=== PATIENT | male | born 1975 | race Caucasian/White ===

== ENCOUNTER 2021-10-22 22:05 | Emergency (ER) | payer OTHER, SELFPAY ==
[2021-10-22 22:21] VITALS: BP 138/89; PULSE 67; RESP 18; TEMP 36.7; O2SAT 98; BMI 37.5
--- NOTE | 2021-10-22 22:27 | DI.RAD.S_ITS ---
PROCEDURE: XR CHEST 1V INDICATIONS: chest pain TECHNIQUE: One view of the chest was acquired. COMPARISON: None. FINDINGS: Surgical changes and devices: None. Lungs and pleura: Lungs are clear. No pleural effusions or pneumothorax. Mediastinum: Mediastinal contours appear normal. Heart size is normal. Bones and chest wall: No suspicious bony lesions. Overlying soft tissues appear unremarkable. IMPRESSION: Reduced inspiratory volume, no definite source of chest pain is found. Dictated by: Jacob Bar M.D. on 10/22/2021 at 22:59 Approved by: Jacob Bar M.D. on 10/22/2021 at 22:59
[2021-10-22 22:52] LABS: Add Manual Diff / Slide Review NO; Basophils Absolute Auto 100 /uL (0-100); Basophils Percent Auto 1.1 % (0-2); Eosinophils Absolute Auto 400 /uL (0-450); Eosinophils Percent Auto 5.9 % (2-4); Hematocrit 41.2 % (41-53); Hemoglobin 14.7 g/dL (13.5-17.5); Lymphocytes Absolute Auto 2900 /uL (1100-4500); Lymphocytes Percent Auto 45.3 % (25-40); Mean Corpuscular HGB Conc 35.6 % (30-36); Mean Corpuscular Hemoglobin 30.6 PG (26-34); Mean Corpuscular Volume 85.8 fL (80-100); Monocytes Absolute Auto 400 /uL (0-900); Monocytes Percent Auto 6.6 % (3-14); Neutrophils Absolute Auto 2600 /uL (1500-7000); Neutrophils Percent Auto 41.1 % (50-75); Platelet Count 282 X10^3/uL (150-400); Red Cell Distribution Width 13.3 % (11.6-14.8); White Blood Cell Count 6.3 X10^3/uL (4.5-11.0)
[2021-10-22 23:01] LABS: Alanine Aminotransferase 38 IU/L (<50); Albumin 4.4 g/dL (3.5-5.0); Albumin Globulin Ratio 1.3 (1.0-2.8); Alkaline Phosphatase 47 U/L (38-126); Aspartate Aminotransferase 34 IU/L (17-59); BUN Creatinine Ratio 18.6 (6-22); Bilirubin Total 0.8 mg/dL (0.2-1.3); Blood Urea Nitrogen 13 mg/dL (9-20); Calcium 8.7 mg/dL (8.4-10.2); Carbon Dioxide 23 mmol/L (22-32); Chloride 105 mmol/L (98-107); Creatine Kinase 298 U/L (55-170); Estimated Glomerular Filt Rate > 60 mL/min (>60); Globulin 3.4 g/dL (1.7-4.1); Glucose 99 mg/dL (70-100); Lipase 141 U/L (23-300); Magnesium 2.1 mg/dL (1.6-2.3); Potassium 4.1 mmol/L (3.4-5.1); Sodium 137 mmol/L (137-145); Total Protein 7.8 g/dL (6.3-8.2)
[2021-10-22 23:12] LABS: Troponin I < 0.012 ng/mL (0.01-0.034)
[2021-10-22 23:16] LABS: CKMB % Relative Index 0.5 % (1.5-5.0); Creatine Kinase MB 1.35 ng/mL (<2.37); HEMOLYSIS 16 (0-50)
[2021-10-22 23:17] LABS: D Dimer < 215 ng/ml (<500)
[2021-10-22] MEDS: MAG HYDROX/ALUMINUM/SIMETH SUS 20 ML, LIDOCAINE VISCOUS 2% 15 ML PO (23:17)
[2021-10-22 23:20] LABS: C-Reactive Protein Quant < 0.5 mg/dL (<1.0)
[2021-10-22 23:22] LABS: Erythrocyte Sedimentation Rate 41 MM/HR (0-15)
--- NOTE | 2021-10-22 23:48 | ED_ITS ---
HPI - Chest Pain General Chief Complaint: Chest Pain Stated Complaint: Chest Pain, Nausea Time Seen by Provider: 10/22/21 22:22 Source: patient Mode of arrival: Ambulatory Limitations: no limitations History of Present Illness HPI narrative: 46-year-old male nonsmoker with extensive history of GI complaints that are likely related to reflux presents with his family in the chief complaint of epigastric discomfort that has been worsening over the past few days and became significantly worse this afternoon. He denies any radiation of the pain nor any associated symptoms such as dizziness, weakness or lightheadedness. He denies nausea, vomiting or diarrhea. He is had no unexplained diaphoresis. He denies any exertional symptoms and states in fact he has been hiking recently and denies any symptoms associated with this. He is had no fever or chills nor any change in diet or bowel habits. He had been taking 40 mg daily of a PPI until recently when his doctor asked him to cut back. He states that he started having increasing frequency and severity of his epigastric pain in the aftermath and states that it wrapped up significantly today, he admittedly had been eating prior to watching a football game but states he did not eat any foods that are typical triggers. He denies any worsening with deep breath. He denies recent travel or history of cancer. He does have a remote history of a DVT that was associated with an orthopedic surgery, he had been on anticoagulants for 6 months but stopped afterwards. Related Data Previous Rx's Medication Instructions Recorded ketorolac 10 mg tablet 10 mg PO Q6H PRN pain #20 tabs 10/23/21 Review of Systems Review of Systems Narrative: GENERAL: Denies chills, fatigue, malaise, fever, sweats. HEENT: Denies sinus pain, ear pain, sore throat, difficulty swallowing, dizziness. RESPIRATORY: Denies dyspnea, cough, wheezing, hemoptysis, sputum. CARDIOVASCULAR: Denies chest pain, palpitations, orthopnea, edema, GASTROINTESTINAL: See HPI : Denies dysuria, frequency, incontinence, hematuria, urinary retention. MUSCULOSKELETAL: denies weakness, joint pain, or bony pain SKIN: Denies rash, skin lesions, or other NEUROLOGIC: Denies weakness, headache, numbness, change in speech, confusion, seizures, incoordination. PSYCHIATRIC: No concerning psychosocial issues. 12 point review of systems is negative except for those stated above Patient History Social History Smoking Status: Never smoker Smoking Status: Never smoker alcohol intake frequency: 0-2 drinks per day Substance Use Type: does not use Exam Narrative Exam Narrative: GENERAL: [46] year old patient appears stated age. Well-developed patient, in mild distress. HEAD: Atraumatic. Normocephalic. EYES: Pupils equal round and reactive. Extraocular motions intact. No scleral icterus. No injection or drainage. ENT: Nose without bleeding, purulent drainage. Throat without erythema, tonsillar hypertrophy or exudate. Airway patent. NECK: Trachea midline. Non tender CARDIOVASCULAR: Regular rate and rhythm without murmurs, gallops, or rubs. RESPIRATORY: Clear to auscultation. Breath sounds equal bilaterally. No wheezes, rales, or rhonchi. GASTROINTESTINAL: Abdomen soft, moderate epigastric pain on palpation nondistended. EXTREMITIES: No edema or joint tenderness. BACK: Nontender without deformity or crepitance. No flank tenderness. NEURO: AOx3. SKIN: No rash or erythema of visible areas Initial Vital Signs Initial Vital Signs: Vital Signs Temperature 98.1 F 10/22/21 22:21 Pulse Rate 67 10/22/21 22:21 Respiratory Rate 18 10/22/21 22:21 Blood Pressure 138/89 10/22/21 22:21 Pulse Oximetry 98 10/22/21 22:21 Oxygen Delivery Method 10/22/21 22:21 Scores HEART Score Heart Score history: Slightly Suspicious Heart Score EKG: Normal Heart Score Age: < 45 years old Heart Score risk factors: No known risk factors Heart Score troponin: < or = to normal limit Heart Score Total: 0 Course Orders Ordered: ED Orders 10/22/21 22:27 XR chest 1V Stat EKG-12 Lead Stat 10/22/21 22:40 CRP [C-Reactive Protein Quant] Stat Complete Blood Count AUTO DIFF Stat Comprehensive Metabolic Panel Stat D Dimer Stat ESR [Erythrocyte Sedimentation Rate] Stat Lipase Stat Magnesium Stat Troponin & CK Cardiac Panel Stat 10/23/21 US abdomen limited Stat Discontinued Medications Al Hydrox/Mg Hydrox/Simethicone 20 ml/ Lidocaine HCl 15 ml 0 ml PO NOW ONE Stop: 10/22/21 22:29 Last Admin: 10/22/21 23:17 Dose: 35 ml Documented By: MANOJ Ketorolac Tromethamine (Ketorolac 30 Mg/Ml Vial) 15 mg IV NOW ONE Stop: 10/22/21 23:59 Last Admin: 10/23/21 00:04 Dose: 15 mg Documented By: MANOJ Pantoprazole Sodium (Pantoprazole 40 Mg Vial) 40 mg IV NOW ONE Stop: 10/22/21 23:59 Last Admin: 10/23/21 00:04 Dose: 40 mg Documented By: MANOJ Reevaluation(s) Reevaluation #1: Patient had significant improvement after GI cocktail Vital Signs Vital signs: Vital Signs - 8 hr 10/22/21 22:21 10/23/21 01:51 Temperature 98.1 F Pulse Rate 67 65 Respiratory Rate 18 18 Blood Pressure 138/89 128/82 Pulse Oximetry 98 99 Oxygen Delivery Method Room Air MDM - Chest Pain Lab Data Result diagrams: 10/22/21 22:40 10/22/21 22:40 Labs: Lab Results 10/22/21 10/22/21 10/22/21 Range/Units 22:40 22:40 22:40 WBC 6.3 (4.5-11.0) X10^3/uL RBC 4.80 (4.5-5.9) X10^6/uL Hgb 14.7 (13.5-17.5) g/dL Hct 41.2 (41-53) % MCV 85.8 (80-100) fL MCH 30.6 (26-34) PG MCHC 35.6 (30-36) % RDW 13.3 (11.6-14.8) % Plt Count 282 (150-400) X10^3/uL Neut % (Auto) 41.1 L (50-75) % Lymph % (Auto) 45.3 H (25-40) % Ray % (Auto) 6.6 (3-14) % Eos % (Auto) 5.9 H (2-4) % Baso % (Auto) 1.1 (0-2) % Neut # (Auto) 2600 (0774-7408) /uL Lymph # (Auto) 2900 (3771-2518) /uL Ray # (Auto) 400 (0-900) /uL Eos # (Auto) 400 (0-450) /uL Baso # (Auto) 100 (0-100) /uL ESR 41 H (0-15) MM/HR D-Dimer (<500) ng/ml Sodium 137 (137-145) mmol/L Potassium 4.1 (3.4-5.1) mmol/L Chloride 105 (98-107) mmol/L Carbon Dioxide 23 (22-32) mmol/L BUN 13 (9-20) mg/dL Creatinine 0.70 (0.66-1.25) mg/dL Estimated GFR > 60 (>60) mL/min BUN/Creatinine Ratio 18.6 (6-22) Glucose 99 (70-100) mg/dL Calcium 8.7 (8.4-10.2) mg/dL Magnesium 2.1 (1.6-2.3) mg/dL Total Bilirubin 0.8 (0.2-1.3) mg/dL AST 34 (17-59) IU/L ALT 38 (<50) IU/L Alkaline Phosphatase 47 (38-126) U/L Total Creatine Kinase 298 H (55-170) U/L CK-MB (CK-2) 1.35 (<2.37) ng/mL CK-MB (CK-2) Rel Index 0.5 L (1.5-5.0) % Troponin I < 0.012 (0.01-0.034) ng/mL C-Reactive Protein (<1.0) mg/dL Total Protein 7.8 (6.3-8.2) g/dL Albumin 4.4 (3.5-5.0) g/dL Globulin 3.4 (1.7-4.1) g/dL Albumin/Globulin Ratio 1.3 (1.0-2.8) Lipase 141 (23-300) U/L 10/22/21 10/22/21 Range/Units 22:40 22:40 WBC (4.5-11.0) X10^3/uL RBC (4.5-5.9) X10^6/uL Hgb (13.5-17.5) g/dL Hct (41-53) % MCV (80-100) fL MCH (26-34) PG MCHC (30-36) % RDW (11.6-14.8) % Plt Count (150-400) X10^3/uL Neut % (Auto) (50-75) % Lymph % (Auto) (25-40) % Ray % (Auto) (3-14) % Eos % (Auto) (2-4) % Baso % (Auto) (0-2) % Neut # (Auto) (0742-8684) /uL Lymph # (Auto) (4805-9830) /uL Ray # (Auto) (0-900) /uL Eos # (Auto) (0-450) /uL Baso # (Auto) (0-100) /uL ESR (0-15) MM/HR D-Dimer < 215 (<500) ng/ml Sodium (137-145) mmol/L Potassium (3.4-5.1) mmol/L Chloride (98-107) mmol/L Carbon Dioxide (22-32) mmol/L BUN (9-20) mg/dL Creatinine (0.66-1.25) mg/dL Estimated GFR (>60) mL/min BUN/Creatinine Ratio (6-22) Glucose (70-100) mg/dL Calcium (8.4-10.2) mg/dL Magnesium (1.6-2.3) mg/dL Total Bilirubin (0.2-1.3) mg/dL AST (17-59) IU/L ALT (<50) IU/L Alkaline Phosphatase (38-126) U/L Total Creatine Kinase (55-170) U/L CK-MB (CK-2) (<2.37) ng/mL CK-MB (CK-2) Rel Index (1.5-5.0) % Troponin I (0.01-0.034) ng/mL C-Reactive Protein < 0.5 (<1.0) mg/dL Total Protein (6.3-8.2) g/dL Albumin (3.5-5.0) g/dL Globulin (1.7-4.1) g/dL Albumin/Globulin Ratio (1.0-2.8) Lipase (23-300) U/L Imaging Data US - abdomen: Radiologist's Impression: Close Abdomen Ultrasound (Signed) Jacob Bar - 10/23/21 Chest X-Ray (Signed) Jacob Bar - 10/22/[address] [address] Ultrasound Report Signed Patient: Daniel Castro MR#: [id number] : 1975 Acct:[id number] Age/Sex: 46 / M Date of Service: 10/23/21 Loc: ED Accession Number: [id number] ?? Procedure: US abdomen limited Ordering Provider: Ruben Velázquez D.O. PROCEDURE: US ABDOMEN LIMITED ? INDICATIONS:? epigastric and RUQ pain ? TECHNIQUE:? Real-time focused scanning was performed of the abdomen, with image documentation.? ? COMPARISON:? [facility], CR, XR CHEST 1V, 10/22/2021, 22:32. ? FINDINGS:? The hepatic echotexture is hyperechoic consistent with fatty infiltration.? The liver is enlarged at 19.8 cm craniocaudad.? The gallbladder has been previou sly resected.? The portal vein, hepatic veins and IVC appear patent.? Note is made of an echogenic focus during scanning through the gallbladder fossa at the jessie hepatis margin, indeterminate in etiology but potentially a surgical clip given the absence of biliary distension within the liver more superiorly. ? IMPRESSION:? Prior cholecystectomy.? No biliary distension found.? The echogenic shadowing structure at the jessie hepatis margin is considered most likely to be a surgical clip after cholecystectomy given the absence of intrahepatic biliary distension. ?Fatty infiltration through the enlarged liver is noted. ? ? Dictated by: Jacob Bar M.D. on 10/23/2021 at 1:15 ? ? Approved by: Jacob Bar M.D. on 10/23/2021 at 1:18 ? [facility] Narrative Medical decision making narrative: 46-year-old male presents with epigastric pain that presents like prior episodes of reflux. He denies dizziness or lightheadedness and has no shortness of breath, cough, nausea, vomiting or unexplained diaphoresis. He is had some s ubtle symptoms that started when his doctor asked him to cut his PPI dose in half but this increased tonight after eating. He had improvement after GI cocktail but also Toradol. Labs and imaging are reassuring. Multiple causes of chest pain considered including TX, PE, pneumothorax, pneumonia, aortic dissection, and pleurisy. Patient reports no radiation, no diaphoresis, no provocation with exertion, and no vomiting. Patient's pain is well controlled, he is tolerating orals, return precautions given and questions answered to his apparent satisfaction Discharge Plan Departure Patient Disposition: Home Clinical Impression: Abdominal pain, epigastric Instructions: DI for Epigastric Pain Activity Restrictions/Additional Instructions: *You have been diagnosed with [epigastric pain most likely a consequence of reflux. As we discussed this could be a mild, early or atypical presentation of pericarditis which is an inflammatory condition the tends to respond to anti- inflammatories alone and will improve over time] *What to do: *Please resume the 40 mg per day dosing of your antacid and otherwise continue your routine medications at their normal dosing [x ] New medication prescriptions sent to your pharmacy: [ [facility]] [ ] New medication written as a paper prescription [ ] No new medications given *Please follow up with your primary care provider in 2-3 days, call for an appointment. Let them know you were seen in the Emergency Department and that we ask that you be seen in follow up. We will electronically transmit a record of today's note if your PCP is in our system * as we discussed, please consider a clear liquid diet for the next 24-48 hours and then slowly advance as tolerated while continuing to avoid alcohol, nicotine, fatty foods, spicy foods and other known triggers *Return to Emergency Department if you should have any new, worsening or concerning symptoms, such as [fever greater than 101 F, shaking chills, worse jefferson pain, persistent vomiting or other bothersome symptoms] Prescriptions: New ketorolac 10 mg tablet 10 mg PO Q6H PRN (Reason: pain) Qty: 20 0RF Referrals: Gary Fabian MD [Primary Care Provider] - Visit Report Forms: Patient Portal/API
--- NOTE | 2021-10-23 | DI.US.S_ITS ---
PROCEDURE: US ABDOMEN LIMITED INDICATIONS: epigastric and RUQ pain TECHNIQUE: Real-time focused scanning was performed of the abdomen, with image documentation. COMPARISON: Located [facility], CR, XR CHEST 1V, 10/22/2021, 22:32. FINDINGS: The hepatic echotexture is hyperechoic consistent with fatty infiltration. The liver is enlarged at 19.8 cm craniocaudad. The gallbladder has been previously resected. The portal vein, hepatic veins and IVC appear patent. Note is made of an echogenic focus during scanning through the gallbladder fossa at the jessie hepatis margin, indeterminate in etiology but potentially a surgical clip given the absence of biliary distension within the liver more superiorly. IMPRESSION: Prior cholecystectomy. No biliary distension found. The echogenic shadowing structure at the jessie hepatis margin is considered most likely to be a surgical clip after cholecystectomy given the absence of intrahepatic biliary distension. Fatty infiltration through the enlarged liver is noted. Dictated by: Jacob Bar M.D. on 10/23/2021 at 1:15 Approved by: Jacob Bar M.D. on 10/23/2021 at 1:18
[2021-10-23] MEDS: KETOROLAC 30 MG/ML VIAL 15 MG IV (00:04)
[2021-10-23] MEDS: PANTOPRAZOLE 40 MG VIAL IV (00:04)
[2021-10-23 01:51] VITALS: BP 128/82; PULSE 65; RESP 18; O2SAT 99
== END 2021-10-23 01:52 | disposition home or self-care (01) ==
PROVIDERS: Emergency Provider Emergency Medicine; PCP Family Medicine
DX: R10.13 Epigastric pain (principal)
CPT/HCPCS: 36415; 71045; 76705; 80053; 82550; 82553; 83690; 83735; 84484; 85025; 85379; 85651; 86140; 93005; 93010; 96374; 96375; 99284; C9113; J1885